=== PATIENT | female | born 1940 | race Two or more races ===

== ENCOUNTER 2022-04-21 08:00 | Inpatient (IN) | payer OTHER ==
[2022-04-21] MEDS ORDERED: CANDESARTAN-HC1 EACH PO (09:21)
[2022-04-21] MEDS ORDERED: GLIMEPIRIDE1 MG (09:22)
[2022-04-21] MEDS ORDERED: LIPITOR20 MG PO (09:22)
[2022-04-21] MEDS ORDERED: HORIZANT300 MG PO (09:22)
[2022-04-21] MEDS ORDERED: AMLODIPINE-OLM1 EACH PO (09:22)
[2022-04-28] MEDS ORDERED: CANDESARTAN CIL32 MG (09:50)
[2022-04-28] MEDS ORDERED: NORVASC2.5 MG (09:50)
[2022-04-28] MEDS ORDERED: GABAPENTIN300 M2 (09:50)
[2022-04-29] MEDS ORDERED: ACETAMINOPHEN-1 EAC2 PO (10:18)
[2022-04-29] MEDS ORDERED: DUI500 PO (10:18)
[2022-04-29] MEDS ORDERED: ELIQUIS2.5 MG PO (10:18)
== END 2022-04-29 17:26 | disposition home or self-care (01) | DRG 470 ==
LOC: SURH 04-27 05:22 → O/R 04-27 05:22 → SURH 04-27 08:00 → SURG 04-27 13:59 → SURH 04-27 14:15
PROVIDERS: ADMIT Orthopaedic Surgery; ATTEND Orthopaedic Surgery
PROC: 0QUD07Z Supplement Right Patella with Autologous Tissue Substitute, Open Approach (ICD-10-PCS; 2022-04-27)
PROC: 0SRC0J9 Replacement of Right Knee Joint with Synthetic Substitute, Cemented, Open Approach (ICD-10-PCS; principal; 2022-04-27 14:15)
DX: M17.11 Unilateral primary osteoarthritis, right knee (principal); D62 Acute posthemorrhagic anemia; M22.11 Recurrent subluxation of patella, right knee; E11.9 Type 2 diabetes mellitus without complications; I10 Essential (primary) hypertension